=== PATIENT | male | born 1965 | race Caucasian/White ===

== ENCOUNTER → 2017-11-23 | Outpatient (CLI) | payer OTHER ==
[~2017-11-23] MED LIST: ALB6.7R INH; CYCL10TA29 PO; DIPH-740 PO; INTE30KI6 IM; MOMR; MONT10TA PO; SULI200T84 PO
[2017-11-23 08:21] LABS: PLATELET COUNT, AUTOMATED 215 K/uL (150-450)
[2017-11-23 08:38] LABS: LDL CHOLESTEROL 94 mg/dl
== END ==
LOC: LAB 08:05
PROVIDERS: ATTEND Internal Medicine
DX: G35 Multiple sclerosis (principal); J30.2 Other seasonal allergic rhinitis
CPT/HCPCS: 36415; 81001; 82040; 82247; 82310; 82374; 82435; 82465; 82565; 82947; 83718; 84075; 84132; 84153; 84155; 84295; 84443; 84450; 84460; 84478; 84520; 85025

== ENCOUNTER → 2018-04-04 | Outpatient (CLI) | payer OTHER ==
[~2018-04-04] MED LIST changes: +GADOBENATE 529MG/1ML 15ML VIAL IVP ONE
--- NOTE | 2018-04-04 10:29 | RADIOLOGY IMAGING REPORT ---
FACILITY: [facility] PATIENT NAME: Robert Araujo : 1965 MR: [id number] V: [id number] EXAM DATE: ORDERING PHYSICIAN: GAUDENCIO RYDER TECHNOLOGIST: Location: [facility] [place] Patient: Robert Araujo : 1965 Visit/Account:[id number] Date of Sevice: 04/04/2018 ORBITS FOREIGN BODY 1 VIEW Indication: Evaluate for foreign object prior to MRI. Comparison: None. Findings: There is no radiopaque foreign body. Impression: Safe for MRI. Report Dictated By: Paxton Mike at 04/04/2018 10:24 AM Report E-Signed By: Pxaton Mike at 04/04/2018 10:24 AM WSN:[id number]
--- NOTE | 2018-04-04 11:12 | RADIOLOGY IMAGING REPORT ---
FACILITY: [facility] [place] PATIENT NAME: Robert Araujo : 1965 MR: [id number] V: [id number] EXAM DATE: ORDERING PHYSICIAN: GAUDENCIO RYDER TECHNOLOGIST: [facility] Patient: Robert Araujo : 1965 Visit/Account:[id number] Date of Sevice: 04/04/2018 Exam type: LUMBAR SPINE COMP W/FLEX/EXT History: Relapsing MS Comparison: September 14, 2011. Findings: Six views the lumbar spine including an AP view, lateral views in the neutral flexion and extension p ositions and both obliques were submitted for interpretation. There are five nonrib-bearing lumbar-t ype vertebral bodies present. There is no evidence of acute fractures or subluxations. There is mil d to moderate disc space narrowing at L1-2 with degenerative endplate changes and small anterior oste ophytes. No significant facet joint changes are identified. Extensive surgical clips are present in the left-sided abdomen and pelvis IMPRESSION: 1. No evidence of acute fractures or subluxations in the lumbar spine Mild to moderate spondylotic changes L1-2 which do not appear significantly changed when compared to the prior study Report Dictated By: Nini Ohara MD at 04/04/2018 11:00 AM Report E-Signed By: Nini Ohara MD at 04/04/2018 11:08 AM WSN:[email or web address]
--- NOTE | 2018-04-04 13:11 | RADIOLOGY IMAGING REPORT ---
FACILITY: [facility] PATIENT NAME: Robert Araujo : 1965 MR: [id number] V: [id number] EXAM DATE: ORDERING PHYSICIAN: GAUDENCIO RYDER TECHNOLOGIST: Location: [facility] - [place], [place] Patient: Robert Araujo : 1965 Visit/Account:[id number] Date of Sevice: 04/04/2018 Examination: MR brain without and with contrast History: MS, recent visual changes Comparison: None Technique: Multiplane MR imaging was performed through the brain without and with contrast. 15 cc IV multihance was administered. Findings: Diffusion: None Ventricles: Normal Midline shift: None Extraxial fluid: None Midline craniocervical structures: Normal Parenchyma: Greater than 15 scattered periventricular, deep and juxtacortical white matter high signa l foci. Enhancement: No pathologic enhancement Vascular flow voids: Normal Orbits and paranasal sinuses: Cataract postsurgical change. Small left maxillary sinus mucous retenti on cysts. Other: No significant additional finding. Impression: 1. Greater than 15 white matter high signal foci in keeping with residua of demyelination given histo ry. 2. No acute finding. 3. No pathologic enhancement to suggest active demyelination. 4. Otherwise normal brain MR without and with contrast. Report Dictated By: Esau Mayen MD at 04/04/2018 1:03 PM Report E-Signed By: Esau Mayen MD at 04/04/2018 1:07 PM WSN:[email or web address]
== END ==
LOC: MRI 00:43
PROVIDERS: ATTEND Psychiatry & Neurology Neurology
DX: G35 Multiple sclerosis (principal); M54.41 Lumbago with sciatica, right side; G89.29 Other chronic pain; M47.817 Spondylosis without myelopathy or radiculopathy, lumbosacral region
CPT/HCPCS: 70030; 70553; 72114; A9577